=== PATIENT | female | born 1965 | race American Indian/Alaskan Native ===

== ENCOUNTER 2018-02-22 12:11 | Day surgery (SDC) | payer MEDICARE, OTHER ==
[~2018-02-22] VITALS: Ht 152.4 cm; Wt 83.7 kg
[~2018-02-22 12:11] MED LIST: ALBU90OI6; CIPRO500 MG PO; CRUTCH4 USE; DICL75ER PO; DIVA500EC PO; FLUT110OIA; Flagyl500 MG PO; LEVSOD100 PO; LEVSOD75 PO; Norco 5-325 Ta1 EACH PO; OMEP20ER PO; PRAV20 PO; Prozac20 MG; TOLT2ER PO; Zofran Odt4 MG SL
== END 2018-02-22 18:25 | disposition home or self-care (01) ==
LOC: ORSCSDS 12:11
PROVIDERS: Podiatrist Foot & Ankle Surgery
PROC: 0QSP04Z Reposition Left Metatarsal with Internal Fixation Device, Open Approach (ICD-10-PCS; principal; 2018-02-22 13:45)
PROC: 0SPN04Z Removal of Internal Fixation Device from Left Metatarsal-Phalangeal Joint, Open Approach (ICD-10-PCS; principal; 2018-02-22 13:45)
PROC: 0QSR04Z Reposition Left Toe Phalanx with Internal Fixation Device, Open Approach (ICD-10-PCS; principal; 2018-02-22 13:45)
DX: M20.12 Hallux valgus (acquired), left foot (principal); Z96.9 Presence of functional implant, unspecified; J45.909 Unspecified asthma, uncomplicated; E03.9 Hypothyroidism, unspecified; E78.5 Hyperlipidemia, unspecified; G40.909 Epilepsy, unspecified, not intractable, without status epilepticus; K21.9 Gastro-esophageal reflux disease without esophagitis; E66.01 Morbid (severe) obesity due to excess calories; Z68.36 Body mass index [BMI] 36.0-36.9, adult; Z79.899 Other long term (current) drug therapy
CPT/HCPCS: C1713; C1769; J0690; J1100; J2250; J2405; J3010; J7120

== ENCOUNTER 2020-02-02 11:12 | Emergency (ER) | payer MEDICARE, OTHER ==
[~2020-02-02] VITALS: Ht 152.4 cm; Wt 81.7 kg
[~2020-02-02 11:12] MED LIST changes: -LEVSOD100 PO; +LEVSOD112 PO; -Prozac20 MG; +Prozac20 MG PO
[2020-02-02] MEDS ORDERED: Mobic15 MG PO (12:53)
[2020-02-02] MEDS ORDERED: LIPITOR80 MG PO (12:53)
== END 2020-02-02 13:05 | disposition home or self-care (01) ==
LOC: ER 11:12
DX: S09.90XA Unspecified injury of head, initial encounter (principal); S16.1XXA Strain of muscle, fascia and tendon at neck level, initial encounter; E03.9 Hypothyroidism, unspecified; G40.909 Epilepsy, unspecified, not intractable, without status epilepticus; Z79.899 Other long term (current) drug therapy; W18.2XXA Fall in (into) shower or empty bathtub, initial encounter
CPT/HCPCS: 70450; 72125; 99284-25

== ENCOUNTER 2021-02-18 13:59 | Emergency (ER) | payer MEDICARE, OTHER ==
[~2021-02-18] VITALS: Ht 157.5 cm; Wt 86.2 kg
[~2021-02-18 13:59] MED LIST changes: +LIPITOR80 MG PO; +Mobic15 MG PO
[2021-02-18 19:45] LABS: Calcium, Ionized (POC) 1.13 mmol/L (1.10-1.46); Chloride (POC) 100 mmol/L (98-108); Creatinine (POC) 0.8 mg/dL (0.6-1.0); Glucose (ISTAT POC) 149 mg/dL (70-99); Hemoglobin (POC) 12.9 g/dL (12.0-16.0); Potassium (POC) 5.2 mmol/L (3.5-5.5); Sodium (POC) 135 mmol/L (135-148); Total CO2 (POC) 27 mmol/L (21-32)
== END 2021-02-18 16:42 | disposition home or self-care (01) ==
LOC: ER 13:59
PROVIDERS: Emergency Medicine
DX: R55 Syncope and collapse (principal); S02.2XXA Fracture of nasal bones, initial encounter for closed fracture; K21.9 Gastro-esophageal reflux disease without esophagitis; E03.9 Hypothyroidism, unspecified; W18.30XA Fall on same level, unspecified, initial encounter
CPT/HCPCS: 36415; 80047; 85014; 93005; 93010; 96360; 96361; 99284-25; A9270; J7120

== ENCOUNTER 2021-02-20 18:28 | Emergency (ER) | payer MEDICARE, OTHER ==
[~2021-02-20] VITALS: Ht 157.5 cm; Wt 86.2 kg
[2021-02-20] MEDS ORDERED: HYDR1TAB94 PO (19:08)
== END 2021-02-20 19:20 | disposition home or self-care (01) ==
LOC: ER 18:28
DX: S02.2XXD Fracture of nasal bones, subsequent encounter for fracture with routine healing (principal); G40.909 Epilepsy, unspecified, not intractable, without status epilepticus; K21.9 Gastro-esophageal reflux disease without esophagitis; E03.9 Hypothyroidism, unspecified; Z79.899 Other long term (current) drug therapy
CPT/HCPCS: 99282; A9270

== ENCOUNTER → 2021-05-22 | Outpatient (CLI) | payer MEDICARE, OTHER ==
[~2021-05-22] MED LIST changes: +HYDR1TAB94 PO
[2021-05-23 15:10] LABS: HPV 16 Negative (Negative); HPV 18 Negative (Negative); HPV OTHER HR TYPES Negative (Negative)
== END | disposition home or self-care (01) ==
LOC: LAB SHORT 13:02 → LAB 13:02
PROVIDERS: Nurse Practitioner Family
DX: Z12.4 Encounter for screening for malignant neoplasm of cervix (principal); Z11.51 Encounter for screening for human papillomavirus (HPV)

== ENCOUNTER 2021-09-09 11:06 | Day surgery (SDC) | payer MEDICARE, OTHER ==
[~2021-09-09] VITALS: Ht 154.9 cm; Wt 97.8 kg
[~2021-09-09 11:06] MED LIST changes: +CALCIUM 500 MG1 EAC2 PO; +CARVEDILOL12.5 MG PO; +LOSA50 PO; +MONDOXYNE NL100 MG PO; +PRIMIDONE PO; +SPIRONOLACTONE25 MG PO; +TROSPIUM CHLORI20 M1 PO; +UBID10 PO
[2021-09-09] MEDS ORDERED: GEMTESA75 MG (12:08)
--- NOTE | 2021-09-09 16:10 | NUR ---
09/09/21 1610 CYDNEY MCARTHUR UP TO THE BATHROOM.
== END 2021-09-09 16:45 | disposition home or self-care (01) ==
LOC: ORSCSDS 11:06
PROVIDERS: Orthopaedic Surgery
PROC: 01N50ZZ Release Median Nerve, Open Approach (ICD-10-PCS; principal; 2021-09-09 12:15)
DX: G56.03 Carpal tunnel syndrome, bilateral upper limbs (principal); I10 Essential (primary) hypertension; E03.9 Hypothyroidism, unspecified; J45.909 Unspecified asthma, uncomplicated; F89 Unspecified disorder of psychological development; R56.9 Unspecified convulsions; K21.9 Gastro-esophageal reflux disease without esophagitis; F17.210 Nicotine dependence, cigarettes, uncomplicated; E66.01 Morbid (severe) obesity due to excess calories; Z68.41 Body mass index [BMI] 40.0-44.9, adult; Z79.899 Other long term (current) drug therapy
CPT/HCPCS: J0690; J2250; J2704; J3010

== ENCOUNTER 2021-09-13 08:57 | Day surgery (SDC) | payer MEDICARE, OTHER ==
[~2021-09-13] VITALS: Ht 157.5 cm; Wt 96.3 kg
[~2021-09-13 08:57] MED LIST changes: +GEMTESA75 MG
--- NOTE | 2021-09-13 12:04 | NUR ---
09/13/21 1204 Jeff Maynard BUPIVACAINE 0.5% 30 MLS MIXED W/ EPI 0.15 ML TO MAKE BUPIVACAINE 0.5% 1:200,000 FOR INJECTION AT OPSITE 10 MLS OF THIS LOCAL INJECTED.
== END 2021-09-13 13:20 | disposition home or self-care (01) ==
LOC: ORSCSDS 08:57
PROVIDERS: Podiatrist Foot & Ankle Surgery
PROC: 0JBR0ZZ Excision of Left Foot Subcutaneous Tissue and Fascia, Open Approach (ICD-10-PCS; principal; 2021-09-13 10:15)
DX: R22.42 Localized swelling, mass and lump, left lower limb (principal); M79.672 Pain in left foot; I10 Essential (primary) hypertension; F32.A Depression, unspecified; F43.10 Post-traumatic stress disorder, unspecified; F41.9 Anxiety disorder, unspecified; J45.909 Unspecified asthma, uncomplicated; K21.9 Gastro-esophageal reflux disease without esophagitis; R56.9 Unspecified convulsions; E66.9 Obesity, unspecified; E66.01 Morbid (severe) obesity due to excess calories; Z68.38 Body mass index [BMI] 38.0-38.9, adult; Z79.899 Other long term (current) drug therapy
CPT/HCPCS: 88304; J0171; J0690; J1100; J2250; J2405; J2704; J3010; J7120

== ENCOUNTER 2021-11-04 12:19 | Emergency (ER) | payer MEDICARE, OTHER ==
[~2021-11-04] VITALS: Ht 154.9 cm; Wt 97.1 kg
[2021-11-04] MEDS ORDERED: Neurontin 300300 MG PO (13:53)
== END 2021-11-04 14:00 | disposition home or self-care (01) ==
LOC: ER 12:19
DX: M54.16 Radiculopathy, lumbar region (principal); E03.9 Hypothyroidism, unspecified; I10 Essential (primary) hypertension; K21.9 Gastro-esophageal reflux disease without esophagitis; Z79.899 Other long term (current) drug therapy
CPT/HCPCS: 72100; 93971; A9270

== ENCOUNTER → 2022-01-22 | Outpatient (CLI) | payer MEDICARE, OTHER ==
[~2022-01-22] MED LIST changes: +Neurontin 300300 MG PO
[2022-01-23 15:10] LABS: HPV 16 Negative (Negative); HPV 18 Negative (Negative); HPV OTHER HR TYPES Negative (Negative)
== END | disposition home or self-care (01) ==
LOC: LAB 16:06 → LAB SHORT 16:06
PROVIDERS: Obstetrics & Gynecology
DX: Z12.4 Encounter for screening for malignant neoplasm of cervix (principal)
CPT/HCPCS: 87624; G0123

== ENCOUNTER → 2022-04-29 | Outpatient (CLI) | payer MEDICARE, OTHER | END | disposition home or self-care (01) | LOC: LAB SHORT 08:00 | DX: R93.89 Abnormal findings on diagnostic imaging of other specified body structures (principal) | CPT/HCPCS: 88305 ==

== ENCOUNTER 2022-06-07 01:05 | Observation (INO) | payer MEDICARE, OTHER ==
[~2022-06-07] VITALS: Ht 160 cm; Wt 88.5 kg
[~2022-06-07 01:05] MED LIST changes: +FOLI1 PO; -GEMTESA75 MG; +GEMTESA75 MG PO; +PRIM250 PO; -PRIMIDONE PO
[2022-06-07 01:49] LABS: BASOPHILS ABSOLUTE AUTO 0.03 K/mm3 (0.00-0.23); BASOPHILS PERCENT AUTO 0 % (0-2); EOSINOPHILS ABSOLUTE AUTO 0.17 K/mm3 (0.00-0.68); EOSINOPHILS PERCENT AUTO 3 % (0-6); Hematocrit 36.3 % (33.0-51.0); Hemoglobin 11.9 g/dL (11.5-16.0); IMMATURE GRAN ABSOLUTE AUTO 0.02 K/mm3 (0.00-0.10); IMMATURE GRAN PERCENT AUTO 0 % (0-1); LYMPHOCYTES ABSOLUTE AUTO 1.04 K/mm3 (0.84-5.20); LYMPHOCYTES PERCENT AUTO 15 % (21-46); MONOCYTES ABSOLUTE AUTO 0.67 K/mm3 (0.16-1.47); MONOCYTES PERCENT AUTO 10 % (4-13); Mean Corpuscular HGB 29.2 pg (26.0-34.0); Mean Corpuscular HGB Conc 32.8 g/dL (31.5-36.5); Mean Corpuscular Volume 89 fL (80-100); Mean Platelet Volume 10.8 fL (9.1-12.4); NEUTROPHILS ABSOLUTE AUTO 4.84 K/mm3 (1.96-9.15); NEUTROPHILS PERCENT AUTO 72 % (41-73); Platelet Count 231 K/mm3 (150-400); RDW Coefficient Variation 12.4 % (11.7-14.2); RDW Standard Deviation 40.1 fL (35.1-46.3); Red Blood Cell Count 4.08 M/mm3 (3.80-5.20); White Blood Cell Count 6.77 K/mm3 (4.00-11.30)
[2022-06-07 02:09] LABS: Albumin, Blood 2.7 g/dL (3.4-5.0); Albumin/Globulin Ratio 0.7 (0.8-1.8); Bilirubin, Total 0.2 mg/dL (0.1-1.0); Bun/Creatinine Ratio 16.5 (12.0-20.0); Calcium, Blood 8.4 mg/dL (8.5-10.1); Creatinine, Blood 0.67 mg/dL (0.40-1.00); Globulin, Blood 4.1 g/dL (2.2-4.0); Potassium, Blood 4.6 mmol/L (3.5-5.5); Total Protein, Blood 6.8 g/dL (6.4-8.2)
[2022-06-07] MEDS ORDERED: LIDOCAINE1 EACH TOP (02:57)
[2022-06-07 04:41] LABS: Influenza A, PCR NEGATIVE (NEGATIVE); Influenza B, PCR NEGATIVE (NEGATIVE); SARS-Cov-2 (COVID-19) PCR, MMC NEGATIVE (NEGATIVE)
[2022-06-07 04:55] LABS: Resp Syncytial Virus, PCR POSITIVE (NEGATIVE)
--- NOTE | 2022-06-07 06:29 | NUR ---
NEW ADMIT FROM ED. A&O X4. VSS. STANDBY ASSIST TO BATHROOM. RECEIVING SCHEDULED IV ABX, AZITHROMYCIN. NEEDS TO GIVE SPUTEM SAMPLE.
--- NOTE | 2022-06-07 09:00 | NUR ---
PT PLEASSNT COOP A/O X3 SOME SLOW. SPOKE TO HER CAREGIVER. STATES CHILDLIKE BEHAVIOR IS NORMAL FOR HER. H/R REG, NO MURMUR NOTED. PER TELE S TACH AT 102. LUNGS WHEEZY T/O. SOLUMEDROL ORDERED AND GIVEN AM MEDS. CALLED RT FOR BREATHING TREATMENT. PT STATES HAS ASTHSMA. BLE +1 EDEMA. BT XX4 LAST BM YEST PER PT. VOIDS SBA TO BATHROOM. BED IN LOW POSITION, CALL LITE IN REACH, CALLS APPROP. HAS SCAR RT BUTTOCK/HIP AREA CDI. SSTATES URINE STIMULATOR, NOT TURNED ON AT THIS TIME. MISC SCABS T/O ALL EXT. YUMIKO 01/06.
--- NOTE | 2022-06-07 19:40 | NUR ---
PT PLEASANT TODAY. ADMIT DONE. DID TALK TO METAL CASKET MAKER TODAY IN HOSP. SHE STATES PT IS SOME CHILDLIKE AND BECOMES OVERWHELMED QUICKLY. DELAYED. SHE PROVIDES HOUSE CARE AND MEAL CARE FOR HER. DRIVES HER WHERE NEEDS. PT CONTINUES TO BE WHEEZY. SOLUMEDROL GIVEN, AND TALKED TO R/T FOR BREATHING TREATMENTS ADMIN PER EMAR. LAP PUNCTURE SITES CONTINUE TO BE CDI. PT DENIES VAGINAL BLEEDING. URINE STIMULATOR SUBCUE ON RT HIP/BUTTOCK. PT STATES IS INACTIVE. VSS. NO C/O PAIN FOR ME TODAY. NO NEW CONCERNS NOTED. BED IN LOW POSITION, CALL LITE IN REACH. CALLS APPROP
[2022-06-08 05:57] LABS: BASOPHILS ABSOLUTE AUTO 0.02 K/mm3 (0.00-0.23); BASOPHILS PERCENT AUTO 0 % (0-2); EOSINOPHILS PERCENT AUTO 0 % (0-6); Hemoglobin 12.3 g/dL (11.5-16.0); IMMATURE GRAN ABSOLUTE AUTO 0.04 K/mm3 (0.00-0.10); IMMATURE GRAN PERCENT AUTO 1 % (0-1); LYMPHOCYTES ABSOLUTE AUTO 0.93 K/mm3 (0.84-5.20); LYMPHOCYTES PERCENT AUTO 11 % (21-46); MONOCYTES ABSOLUTE AUTO 0.46 K/mm3 (0.16-1.47); MONOCYTES PERCENT AUTO 5 % (4-13); Mean Corpuscular HGB 29.4 pg (26.0-34.0); Mean Corpuscular HGB Conc 34.2 g/dL (31.5-36.5); Mean Corpuscular Volume 86 fL (80-100); Mean Platelet Volume 11.1 fL (9.1-12.4); NEUTROPHILS ABSOLUTE AUTO 7.27 K/mm3 (1.96-9.15); NEUTROPHILS PERCENT AUTO 83 % (41-73); Platelet Count 247 K/mm3 (150-400); RDW Coefficient Variation 12.2 % (11.7-14.2); RDW Standard Deviation 38.1 fL (35.1-46.3); Red Blood Cell Count 4.19 M/mm3 (3.80-5.20); White Blood Cell Count 8.72 K/mm3 (4.00-11.30)
[2022-06-08 06:17] LABS: Albumin, Blood 2.6 g/dL (3.4-5.0); Albumin/Globulin Ratio 0.6 (0.8-1.8); Bilirubin, Total 0.2 mg/dL (0.1-1.0); Bun/Creatinine Ratio 24.4 (12.0-20.0); Calcium, Blood 8.8 mg/dL (8.5-10.1); Creatinine, Blood 0.57 mg/dL (0.40-1.00); Total Protein, Blood 6.6 g/dL (6.4-8.2)
--- NOTE | 2022-06-08 07:41 | NUR ---
SHIFT SUMMARY A&O X 3. VSS. PLEASANT AND COOPERATIVE. INDEPENDENT IN ROOM. C/O OF WHEEZING AND REQUESTED BREATHING TREATMENT FROM RT. SLEPT OFF AND ON BETWEEN CARE.
[2022-06-08] MEDS ORDERED: ALBU90OI INH (12:20)
[2022-06-08] MEDS ORDERED: FLUTICASONE-SA1 EAC1 INH (12:21)
[2022-06-08] MEDS ORDERED: PRED20 PO (12:22)
[2022-06-08] MEDS ORDERED: ALBUTEROL2.5 MG/0.5 INH (12:25)
--- NOTE | 2022-06-08 14:35 | NUR ---
PT TO DISCHARGE. CREDIT VERIFIER CALLED. NEBULIZER NOT AVAIL TODAY. CALLED DR CHENG. LAURO D/C ANYWAY. CAN START NEBULIZER TOMORROW. SHE WILL HAVE THE STEROIDS AND OTHER INHALERS
--- NOTE | 2022-06-08 14:36 | NUR ---
PT DISCHARGE REVIEWED BY PT AND CAREGIVER. THEY VERBALIZED UNDERSTNADING MEDS AND INST. UNDERSTANDS START NEBULIZER TOMORROW. IV PULLED INTACT BY AIDE. TELE REMOVED AND RETURNED . PT WHEELED TO DOOR AT 1437 BY AIDE.
== END 2022-06-08 14:36 | disposition home or self-care (01) ==
LOC: ER 01:05 → MEDS 01:06
PROVIDERS: Emergency Medicine; ADMIT Internal Medicine
DX: J45.901 Unspecified asthma with (acute) exacerbation (principal); K21.9 Gastro-esophageal reflux disease without esophagitis; E03.9 Hypothyroidism, unspecified; I10 Essential (primary) hypertension; E78.5 Hyperlipidemia, unspecified; G40.909 Epilepsy, unspecified, not intractable, without status epilepticus; Z20.822 Contact with and (suspected) exposure to COVID-19
CPT/HCPCS: 0241U; 36415; 71045; 80053; 83880; 85025; 87070; 87205; 93005; 93010; 94640; 94644; 94664; 94760; 96365; 96366; 96372; 96374; 96376; 99285-25; A9270; G0378; J0456; J1650; J2930; J7050

== ENCOUNTER 2022-07-14 13:18 | Day surgery (SDC) | payer MEDICARE, OTHER ==
[~2022-07-14] VITALS: Ht 152.4 cm; Wt 88.0 kg
[~2022-07-14 13:18] MED LIST changes: +ALBU90OI INH; +ALBUTEROL2.5 MG/0.5 INH; +FLUTICASONE-SA1 EAC1 INH; +LIDOCAINE1 EACH TOP; +PRED20 PO
== END 2022-07-14 15:45 | disposition home or self-care (01) ==
LOC: ORSCSDS 13:18
PROVIDERS: Student in an Organized Health Care Education/Training Program
PROC: 0DBN8ZX Excision of Sigmoid Colon, Via Natural or Artificial Opening Endoscopic, Diagnostic (ICD-10-PCS; principal; 2022-07-14 14:45)
PROC: 0DBH8ZX Excision of Cecum, Via Natural or Artificial Opening Endoscopic, Diagnostic (ICD-10-PCS; principal; 2022-07-14 14:45)
PROC: 0DBK8ZX Excision of Ascending Colon, Via Natural or Artificial Opening Endoscopic, Diagnostic (ICD-10-PCS; principal; 2022-07-14 14:45)
DX: Z12.11 Encounter for screening for malignant neoplasm of colon (principal); Z86.010 Personal history of colon polyps; D12.2 Benign neoplasm of ascending colon; K63.5 Polyp of colon; K64.8 Other hemorrhoids; I10 Essential (primary) hypertension; J44.9 Chronic obstructive pulmonary disease, unspecified; E03.9 Hypothyroidism, unspecified; E66.9 Obesity, unspecified; Z68.38 Body mass index [BMI] 38.0-38.9, adult; Z79.899 Other long term (current) drug therapy
CPT/HCPCS: 88305; J0330; J0461; J2405; J2704; J7120; Q9968

== ENCOUNTER 2023-07-26 21:37 | Emergency (ER) | payer MEDICARE, OTHER ==
[~2023-07-26] VITALS: Ht 152.4 cm; Wt 88.5 kg
[2023-07-26] MEDS ORDERED: Acetaminophen 500 MG Tab PO PRN (22:50)
[2023-07-26 22:54] LABS: BASOPHILS ABSOLUTE AUTO 0.02 K/mm3 (0.00-0.23); BASOPHILS PERCENT AUTO 0 % (0-2); EOSINOPHILS ABSOLUTE AUTO 0.06 K/mm3 (0.00-0.68); EOSINOPHILS PERCENT AUTO 1 % (0-6); Hematocrit 37.7 % (33.0-51.0); Hemoglobin 12.7 g/dL (11.5-16.0); IMMATURE GRAN ABSOLUTE AUTO 0.06 K/mm3 (0.00-0.10); IMMATURE GRAN PERCENT AUTO 1 % (0-1); LYMPHOCYTES ABSOLUTE AUTO 0.81 K/mm3 (0.84-5.20); LYMPHOCYTES PERCENT AUTO 12 % (21-46); MONOCYTES ABSOLUTE AUTO 0.87 K/mm3 (0.16-1.47); MONOCYTES PERCENT AUTO 13 % (4-13); Mean Corpuscular HGB 29.1 pg (26.0-34.0); Mean Corpuscular HGB Conc 33.7 g/dL (31.5-36.5); Mean Corpuscular Volume 86 fL (80-100); Mean Platelet Volume 10.8 fL (9.1-12.4); NEUTROPHILS ABSOLUTE AUTO 5.06 K/mm3 (1.96-9.15); NEUTROPHILS PERCENT AUTO 74 % (41-73); Platelet Count 235 K/mm3 (150-400); RDW Coefficient Variation 12.8 % (11.7-14.2); RDW Standard Deviation 40.4 fL (35.1-46.3); Red Blood Cell Count 4.37 M/mm3 (3.80-5.20); White Blood Cell Count 6.88 K/mm3 (4.00-11.30)
[2023-07-26 23:01] LABS: Albumin, Blood 3.1 g/dL (3.4-5.0); Albumin/Globulin Ratio 0.7 (0.8-1.8); Bilirubin, Total 0.2 mg/dL (0.1-1.0); Bun/Creatinine Ratio 23.5 (12.0-20.0); Creatinine, Blood 0.68 mg/dL (0.40-1.00); Globulin, Blood 4.4 g/dL (2.2-4.0); Potassium, Blood 4.2 mmol/L (3.5-5.5); Total Protein, Blood 7.5 g/dL (6.4-8.2)
[2023-07-26 23:04] LABS: Source, Urine Clean Catch
[2023-07-26 23:07] LABS: Bilirubin, Urine Neg (Neg); Blood, Urine Neg (Neg); Glucose Qualitative, Urine Neg (Neg); Ketones, Urine Neg (Neg); Leukocyte Esterase, Urine Neg (Neg); Nitrite, Urine Neg (Neg); Protein, Urine 1+ (Neg); Urobilinogen, Urine NORM (Normal); pH, Urine 6.5 (5.0-8.0)
[2023-07-26 23:08] LABS: Appearance, Urine Clear (Clear); Color, Urine Yellow (P-Yellow)
[2023-07-26 23:31] LABS: Influenza A, PCR NEGATIVE (NEGATIVE); Influenza B, PCR NEGATIVE (NEGATIVE); Resp Syncytial Virus, PCR NEGATIVE (NEGATIVE)
[2023-07-26 23:47] LABS: SARS-Cov-2 (COVID-19) PCR, MMC POSITIVE (NEGATIVE)
[2023-07-27] MEDS ORDERED: RX PP Nirmatrelvir/Ritonavir (Paxlovid) 1 CO-PACKAGE (30 Tabs) UD ONE (00:25)
[2023-07-27] MEDS ORDERED: BENZ100A PO (00:26)
[2023-07-27] MEDS ORDERED: ONDA4ODT MM (00:26)
[2023-07-27 01:25] VITALS: BP 112/45
== END 2023-07-27 01:26 | disposition home or self-care (01) ==
LOC: ER 21:37
PROVIDERS: Emergency Medicine
DX: U07.1 COVID-19 (principal); J40 Bronchitis, not specified as acute or chronic; G40.909 Epilepsy, unspecified, not intractable, without status epilepticus; K21.9 Gastro-esophageal reflux disease without esophagitis; E03.9 Hypothyroidism, unspecified; I10 Essential (primary) hypertension; Z79.899 Other long term (current) drug therapy; Z79.890 Hormone replacement therapy
CPT/HCPCS: 0241U; 71046; 80053; 84484; 85025; 93005; 93010; 99284-25; A9270

== ENCOUNTER → 2023-12-25 | Outpatient (CLI) | payer MEDICARE, OTHER ==
[~2023-12-25] MED LIST changes: +ALBU8HFA2; +ATORVASTATIN CA20 MG PO; +BENZ100A PO; +ONDA4ODT MM; +Pulmicort Flex90 MCG INH
[2023-12-26 08:53] LABS: C DIFFICILE DNA NEGATIVE (Negative)
== END | disposition home or self-care (01) ==
LOC: LAB SHORT 15:31
PROVIDERS: Urology
DX: R19.7 Diarrhea, unspecified (principal)
CPT/HCPCS: 87493

== ENCOUNTER 2024-03-31 11:08 | Day surgery (SDC) | payer MEDICARE, OTHER ==
[~2024-03-31] VITALS: Ht 152.4 cm; Wt 88.2 kg
[~2024-03-31 11:08] MED LIST changes: +BUDESONIDE-FO10.2 G3; +BUDESONIDE-FO10.2 G3 INH; +FLUTICASONE PRO12 GM INH; +Lactated Ringer's 1,000 ML IV ONE
[2024-03-31] MEDS ORDERED: propofoL 50 ML IV ONE (11:47)
[2024-03-31] MEDS ORDERED: Lactated Ringer's 1,000 ML IV ONE (12:10)
[2024-03-31 13:00] VITALS: BP 127/77
== END 2024-03-31 13:18 | disposition home or self-care (01) ==
LOC: ORSCSDS 11:08
PROVIDERS: Specialist
PROC: 0DB68ZX Excision of Stomach, Via Natural or Artificial Opening Endoscopic, Diagnostic (ICD-10-PCS; principal; 2024-03-31 12:45)
PROC: 0DB58ZX Excision of Esophagus, Via Natural or Artificial Opening Endoscopic, Diagnostic (ICD-10-PCS; principal; 2024-03-31 12:45)
PROC: 0DB98ZX Excision of Duodenum, Via Natural or Artificial Opening Endoscopic, Diagnostic (ICD-10-PCS; principal; 2024-03-31 12:45)
PROC: 0D757ZZ Dilation of Esophagus, Via Natural or Artificial Opening (ICD-10-PCS; principal; 2024-03-31 12:45)
DX: R13.10 Dysphagia, unspecified (principal); K29.70 Gastritis, unspecified, without bleeding; R10.10 Upper abdominal pain, unspecified; K64.4 Residual hemorrhoidal skin tags; Z79.899 Other long term (current) drug therapy
CPT/HCPCS: 88305; 88342; C1769; J2704; J7120